=== PATIENT | male | born 1965 | race Caucasian/White ===

== ENCOUNTER 2021-09-19 15:43 | Emergency (ER) | payer SELFPAY ==
[~2021-09-19] VITALS: Ht 175.3 cm; Wt 72.6 kg
[~2021-09-19 15:43] MED LIST: ASPIR 8181 MG PO; LISINOPRIL10 MG PO
[2021-09-19] MEDS ORDERED: KETOROLAC TROMETHAMINE 30 MG/ML VIAL IV STA (16:19)
[2021-09-19] MEDS ORDERED: CYCLOBENZAPRINE HCL 10 MG TAB PO ONE (16:30)
[2021-09-19] MEDS ORDERED: METHOCARBAMOL750 MG PO (16:41)
[2021-09-19] MEDS ORDERED: KETOROLAC TROME10 MG PO (16:41)
[2021-09-19 16:58] VITALS: BP 135/82
== END 2021-09-19 17:00 | disposition home or self-care (01) ==
LOC: ER 15:47
DX: M54.50 Low back pain, unspecified (principal); G89.29 Other chronic pain; Z87.820 Personal history of traumatic brain injury; F17.210 Nicotine dependence, cigarettes, uncomplicated
CPT/HCPCS: 99282; J1885